=== PATIENT | female | born 1970 | race Caucasian/White ===

== ENCOUNTER 2022-06-23 07:40 | Outpatient (CLI) | payer OTHER, SELFPAY | END 2022-06-23 07:41 | disposition home or self-care (01) | LOC: NFLDREF 06-24 06:29 | PROVIDERS: PCP Family Medicine; Referring Provider Family Medicine; Visit Provider Family Medicine | DX: E03.9 Hypothyroidism, unspecified (principal); F50.9 Eating disorder, unspecified; K50.90 Crohn's disease, unspecified, without complications; R19.7 Diarrhea, unspecified | CPT/HCPCS: 83520; 84439; 84443 ==

== ENCOUNTER 2022-11-03 10:13 | Outpatient (REF) | payer OTHER, SELFPAY ==
[2022-11-03 10:50] LABS: Basophils Absolute Auto 0.03 K/uL (0.00-0.30); Basophils Percent Auto 0.3 % (0.0-3.0); Eosinophils Absolute Auto 0.06 K/uL (0.00-0.50); Eosinophils Percent Auto 0.7 % (0.0-7.0); Hematocrit 41.3 % (33.0-51.0); Hemoglobin* 13.5 gm/dL (12.0-16.0); Immature Granulocytes Abs Auto 0.01 K/uL (0.00-0.30); Immature Granulocytes Pct Auto 0.1 %; Lymphocytes Absolute Auto 2.23 K/uL (0.90-2.90); Lymphocytes Percent Auto 24.8 % (20-44); Mean Corpuscular HGB Conc 33 gm/dL (32-36); Mean Corpuscular Hemoglobin 32 pg (26-34); Mean Corpuscular Volume 98 fL (80-100); Monocytes Percent Auto 9.4 % (0.0-11.0); Neutrophils Absolute Auto 5.83 K/uL (1.7-7.0); Neutrophils Percent Auto 64.7 % (42.0-72.0); Platelet Count* 271 K/uL (140-440); RDW Coefficient of Variation % 11.9 % (11.5-15.5); Red Blood Count 4.22 m/uL (4.00-5.20); White Blood Count* 9.01 K/uL (4.50-11.00)
[2022-11-03 10:52] LABS: Albumin* 4.4 g/dL (3.3-5.0)
[2022-11-03 10:55] LABS: Alanine Aminotransferase* 18 U/L (4-35); Alkaline Phosphatase* 73 U/L (40-150); Aspartate Amino Transferase* 24 U/L (12-35); Bilirubin Direct* 0.1 mg/dL (0.0-0.5); Total Protein* 7.5 g/dL (6.0-8.3)
[2022-11-03 11:01] LABS: Slide Review Reflex No
[2022-11-03 11:44] LABS: Vitamin B12* 761 pg/mL (243-894)
[2022-11-03 11:56] LABS: C Reactive Protein* < 0.5 mg/dL (0.5-1.0)
[2022-11-09 18:52] LABS: Calcium* 9.4 mg/dL (8.4-10.6)
== END 2022-11-03 10:14 | disposition home or self-care (01) ==
LOC: LAB 10:13
PROVIDERS: PCP Family Medicine
DX: F50.9 Eating disorder, unspecified (principal)
CPT/HCPCS: 36415; 80076; 82310; 82607; 82784; 85025; 86140; 86364; 86480

== ENCOUNTER 2023-01-14 21:54 | Emergency (ER) | payer OTHER, SELFPAY ==
[2023-01-14 22:11] VITALS: BP 155/93; PULSE 68; RESP 24; TEMP 36.4; O2SAT 99; BMI 19.4
--- NOTE | 2023-01-15 02:15 | ED.NURSE ---
RUDOLPH nurse arrived
== END 2023-01-15 05:40 | disposition home or self-care (01) ==
PROVIDERS: Emergency Provider Family Medicine; PCP Family Medicine
DX: T74.21XA Adult sexual abuse, confirmed, initial encounter (principal)

== ENCOUNTER 2023-01-28 18:56 | Emergency (ER) | payer OTHER, SELFPAY ==
[2023-01-28 19:03] VITALS: BP 170/92; PULSE 90; RESP 18; TEMP 36.7; O2SAT 99; BMI 28.2
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
[2023-01-28 19:49] LABS: Lactate* 0.8 mmol/L (0.5-1.9)
[2023-01-28 19:50] LABS: Basophils Absolute Auto 0.02 K/uL (0.00-0.30); Basophils Percent Auto 0.3 % (0.0-3.0); Eosinophils Absolute Auto 0.08 K/uL (0.00-0.50); Eosinophils Percent Auto 1.1 % (0.0-7.0); Hematocrit 40.3 % (33.0-51.0); Hemoglobin* 13.8 gm/dL (12.0-16.0); Immature Granulocytes Abs Auto 0.01 K/uL (0.00-0.30); Immature Granulocytes Pct Auto 0.1 %; Lymphocytes Absolute Auto 1.84 K/uL (0.90-2.90); Mean Corpuscular HGB Conc 34 gm/dL (32-36); Mean Corpuscular Hemoglobin 33 pg (26-34); Mean Corpuscular Volume 95 fL (80-100); Monocytes Percent Auto 9.5 % (0.0-11.0); Neutrophils Absolute Auto 4.72 K/uL (1.7-7.0); Platelet Count* 277 K/uL (140-440); RDW Coefficient of Variation % 11.6 % (11.5-15.5); Red Blood Count 4.23 m/uL (4.00-5.20); White Blood Count* 7.37 K/uL (4.50-11.00)
[2023-01-28 19:52] LABS: Slide Review Reflex No
[2023-01-28] MEDS: 0.9 % SODIUM CHLORIDE 1000 ml 1,000 ML IV (20:04)
[2023-01-28] MEDS: LORazepam 2 MG/ML inj 1 MG IVP (20:05)
[2023-01-28 20:07] LABS: Chloride* 99 mmol/L (96-114); Potassium* 3.7 mmol/L (3.6-5.1); Sodium* 135 mmol/L (135-149)
[2023-01-28 20:10] LABS: Anion Gap 11 mEq/L (7-15); Blood Urea Nitrogen* 8 mg/dL (7-30); Carbon Dioxide* 25 mmol/L (20-32); Creatinine* 0.6 mg/dL (0.5-1.5); Est. Creatinine Clearance* 105.01; Estimated Glomerular Filt Rate 109 ml/min; Glucose* 114 mg/dL (60-115); Magnesium* 2.2 mg/dL (1.5-2.6)
[2023-01-28 20:11] LABS: Calcium* 8.9 mg/dL (8.4-10.6)
[2023-01-28] MEDS: predniSONE 20 MG TABLET 60 MG PO (20:57)
== END 2023-01-28 21:16 | disposition home or self-care (01) ==
PROVIDERS: Emergency Provider Emergency Medicine; PCP Family Medicine
DX: E86.0 Dehydration (principal); F43.11 Post-traumatic stress disorder, acute; F41.9 Anxiety disorder, unspecified; R19.7 Diarrhea, unspecified
CPT/HCPCS: 36415; 80048; 83605; 83735; 85025; 96374; 99283; 99284; J2060; J7030; J7512

== ENCOUNTER 2023-01-29 17:03 | Outpatient (CLI) | payer OTHER, SELFPAY | END 2023-01-29 17:04 | disposition home or self-care (01) | PROVIDERS: PCP Family Medicine; Visit Provider Family Medicine | DX: Z11.3 Encounter for screening for infections with a predominantly sexual mode of transmission (principal); Z11.59 Encounter for screening for other viral diseases | CPT/HCPCS: 80053; 84443; 86592; 86593; 86703; 86705; 86706; 86803; 87340 ==

== ENCOUNTER 2023-02-01 13:27 | Outpatient (CLI) | payer OTHER, SELFPAY | END 2023-02-01 13:28 | disposition home or self-care (01) | LOC: NFLDREF 02-09 06:49 | PROVIDERS: PCP Family Medicine; Referring Provider Family Medicine; Visit Provider Family Medicine | DX: Z11.3 Encounter for screening for infections with a predominantly sexual mode of transmission (principal) | CPT/HCPCS: 87491; 87591 ==

== ENCOUNTER 2023-02-09 10:24 | Outpatient (CLI) | payer OTHER, SELFPAY ==
--- NOTE | 2023-02-09 10:45 | MR_ITS ---
[address] [address] Phone:?[phone] Fax:?[phone] Referring Physician Information: Yrn Weems [address] [facility] [address] Phone:?[phone] Fax:?[phone] Patient:Ketty Proctor D.O.B:?1970 Sex:?Female Phone:?[phone] [facility] MRN:?[id number] Exam Date:?02/09/2023 EXAM: MRI OF THE RIGHT ELBOW CLINICAL INFORMATION: The patient is a 52-year-old with right elbow pain. Evaluate for coronoid fracture. PRIOR SURGERY: None reported. COMPARISON STUDIES: Comparison is made to prior radiographs dated 02/07/2023. TECHNICAL INFORMATION: Imaging was performed on a high-field, 1.5 Joanie MR scanner. Coronal T1 and coronal STIR imaging of the right elbow was performed in addition to axial, coronal, and sagittal proton-density and T2 imaging. FINDINGS: Elbow joint: Effusion: Mild. Ganglion cyst: None. Osteochondral surfaces: No definite chondral or osteochondral injury can be seen along the articular surfaces of the right elbow. Loose bodies: No well-defined intra-articular loose bodies are present. Olecranon bursa: No evidence for bursitis can be seen. Osseous structures: Humerus: No evidence for acute bony abnormality of the distal humerus can be seen. There is no evidence for fracture, contusion, or stress injury. No osteochondral abnormalities along the articular surfaces are present. No bony injuries to the medial or lateral epicondylar regions can be seen. Radius: No fracture or marrow edema. Ulna: Mild marrow edema can be seen within the coronoid process region of the proximal ulna seen on coronal series 4 image 11. A small, age indeterminate cortical fracture is thought to be present involving the distal tip of the coronoid process on sagittal series 7 image 7, corresponding to the abnormality seen on the prior radiographs. CT scanning may also be helpful in further evaluation. No other bony abnormalities of the proximal ulna can be seen. Myotendinous structures: Biceps: Intact, without tendinopathy or tear. Triceps: Intact posterior tendinous and anterior muscular insertions and lateral aponeurotic component, without tendinopathy, strain or tear. Brachialis: No strain/tear. Forearm extensors: No tear or tendinopathy. There is no definite evidence for lateral epicondylitis. Forearm flexors: No tear or tendinopathy. There is no definite evidence for medial epicondylitis. Ligaments: Ulnar collateral: No sprain or disruption. Radial collateral: Normal. Lateral ulnar collateral: Normal. Annular: Intact. Neurovascular structures: Ulnar nerve: Normal, without appreciable edema, thickening or mass. Median neurovascular bundle: Normal. Radial neurovascular bundle: Normal. CONCLUSION: 1. Small, age-indeterminate cortical fracture involving the coronoid process, corresponding to the abnormality seen on prior radiographs. 2. No other bony abnormalities about the right elbow are seen. 3. Mild elbow joint effusion. 4. No musculotendinous injuries are identified. 5. The ligamentous structures of the elbow appear intact. 6. No definite neurovascular abnormalities are present. [facility] Electronically signed on 02/09/2023 2:50:00 PM by Chris Patel M.D.
== END 2023-02-09 10:25 | disposition home or self-care (01) ==
LOC: MRI 10:25
PROVIDERS: PCP Family Medicine; Visit Provider Physician Assistant
DX: M25.521 Pain in right elbow (principal); S52.041A Displaced fracture of coronoid process of right ulna, initial encounter for closed fracture; M25.421 Effusion, right elbow; S59.901A Unspecified injury of right elbow, initial encounter
CPT/HCPCS: 73221

== ENCOUNTER 2023-03-14 09:07 | Outpatient (CLI) | payer OTHER, SELFPAY | END 2023-03-14 09:08 | disposition home or self-care (01) | LOC: NFLDREF 03-15 09:59 | PROVIDERS: PCP Family Medicine; Referring Provider Family Medicine; Visit Provider Family Medicine | DX: Z00.00 Encounter for general adult medical examination without abnormal findings (principal); N95.1 Menopausal and female climacteric states; E03.9 Hypothyroidism, unspecified; F32.A Depression, unspecified; B00.1 Herpesviral vesicular dermatitis; F90.9 Attention-deficit hyperactivity disorder, unspecified type; J45.909 Unspecified asthma, uncomplicated; Z87.898 Personal history of other specified conditions | CPT/HCPCS: 86703 ==